=== PATIENT | female | born 1985 | race Two or more races ===

== ENCOUNTER 2020-07-11 20:10 | Emergency (ER) | payer OTHER ==
[~2020-07-11] VITALS: Ht 160 cm; Wt 61.2 kg
[2020-07-11] MEDS ORDERED: TETANUS-DIPTH-ACEL PERTUSSIS 0.5ML SYR Tdap IM ONE (20:30)
[2020-07-11] MEDS ORDERED: MORPHINE SULFATE 4 MG/ML SYR/VIAL IV ONE (20:30)
[2020-07-11] MEDS ORDERED: cefTRIAXone 1GM/50ML D5W 50 ML IV ONE (20:30)
[2020-07-11] MEDS ORDERED: ONDANSETRON HCL 4 MG/2 ML VIAL IV ONE (20:30)
[2020-07-11] MEDS ORDERED: HYDROmorphone HCL 2 MG/ML VL IV ONE (22:15)
[2020-07-11 23:28] VITALS: BP 113/72
== END 2020-07-11 23:40 | disposition short-term general hospital (02) ==
LOC: ER 20:10
DX: S68.115A Complete traumatic metacarpophalangeal amputation of left ring finger, initial encounter (principal); W18.39XA Other fall on same level, initial encounter; Y93.89 Activity, other specified; Y92.89 Other specified places as the place of occurrence of the external cause; Y99.8 Other external cause status
CPT/HCPCS: 73130; 90471; 90715; 96365; 96375; 99285; J0696; J1170; J2270; J2405